=== PATIENT | female | born 1995 | race Caucasian/White ===

== ENCOUNTER 2016-11-20 02:05 | Emergency (ER) | payer OTHER ==
[2016-11-20] MEDS ORDERED: ALBUTEROL 8 GM INHALER INH STA (03:56)
[2016-11-20] MEDS ORDERED: predniSONE 20 MG TABLET PO STA (03:57)
[2016-11-20] MEDS ORDERED: predniSONE 20 MG TABLET ONE (04:01)
[2016-11-20] MEDS ORDERED: ALBUTEROL 8 GM INHALER INH ONE (04:07)
== END 2016-11-20 04:30 | disposition home or self-care (01) ==
DX: J45.909 Unspecified asthma, uncomplicated (principal)
CPT/HCPCS: 94640; 99283; A9270; J7512